=== PATIENT | female | born 1970 | race Caucasian/White ===

== ENCOUNTER → 2016-10-28 | Outpatient (CLI) | payer MEDICARE, MEDICAID ==
[~2016-10-28] MED LIST: ADVIL200 MG PO; AMLOPIDINE; AMOXICILLIN; ANTI-GAS ULTRA180 MG PO; ARICEPT ODT10 MG PO; BEANO; BEANO1 TAB PO; CALCIUM CARBONATE PO; CLARITIN 1010 MG/TAB PO; COLACE 100100 MG/CAP PO; ECONAZOLE NITRATE1% TP; ESTRACE0.5 MG PO; FLORINEF ACETA0.1 MG PO; GAS DISTRESS1 TAB PO; GAS-X; IBUPROFEN400 MG PO; KERASAL TOP; LANOXIN 0.120.125 MG PO; LEVOTHYROXINE0.05 M1 PO; LEVOXYL0.05 MG PO; LORATADINE10 MG PO; LOTRIMIN1% TP; MUCINEX 60600 MG/TA1 PO; MUCINEX 60600 MG/TAB PO; MULTIPLE VITAMI1 CAP PO; MVI; NAMENDA 10MG TA10 MG PO; NEXIUM40 MG PO; OLOPATADINE OP; POVIDONE IODINE; PRADAXA 150MG150 MG PO; PRILOSEC 20MG20 MG PO; PROVERA 2.5MG2.5 MG PO; SYSTANE 0.4%-0.1 SOL OP; SYSTANE 0.4%-0.15 ML OU; THE MEDICINE SH1 POW; VICKS VAPORUB 41 OIN TP; VITAMIN C500 MG PO; VITAMIN D31000 I1 PO; VITAMIN E-400200 IU PO; ZADITOR 5 ML5 ML OP
== END ==
LOC: COL.RAD 12:18
DX: M51.26 Other intervertebral disc displacement, lumbar region (principal); M71.38 Other bursal cyst, other site; M48.06 Spinal stenosis, lumbar region
CPT/HCPCS: A9585

== ENCOUNTER → 2017-03-05 | Outpatient (CLI) | payer MEDICARE, MEDICAID | LOC: MC.RAD 07:57 | DX: Z12.31 Encounter for screening mammogram for malignant neoplasm of breast (principal) ==

== ENCOUNTER 2017-07-09 06:16 | Day surgery (SDC) | payer MEDICARE, MEDICAID ==
[~2017-07-09] VITALS: Ht 134.6 cm; Wt 47.7 kg
[2017-07-09] VITALS (9 sets, daily range): BP systolic 89–114; BP diastolic 54–69; PULSE 69–70
[~2017-07-09 06:16] MED LIST changes: +ANTACID500 M1 PO; -GAS DISTRESS1 TAB PO
[2017-07-09 07:20] LABS: HEMOGLOBIN 13.3 g/dl (12.5-16.0); MEAN CELL VOLUME 99 fl (80.0-100.0); MEAN CORPUSCULAR HEMOGLOBIN 33 pg (27.0-31.0); MEAN CORPUSCULAR HGB CONC 33 g/dl (33.0-37.0); MEAN PLATELET VOLUME 9.6 fl (7.4-10.4); PLATELET COUNT 120 K/mm3 (130-400); RED BLOOD COUNT 4.03 M/mm3 (4.10-5.30); REDCELL DISTRIBUTION WIDTH-CV 13.3 % (11.5-14.5); WHITE BLOOD COUNT 2.7 K/mm3 (4.8-10.8)
[2017-07-09 07:25] LABS: INR 1.3 (0.8-3.0)
[2017-07-09] MEDS ORDERED: FLONASEALLERGY NS (08:05)
[2017-07-09 08:23] LABS: CREATININE, serum 0.83 mg/dL (0.52-1.25); POTASSIUM 3.7 mmol/L (3.4-5.0)
[2017-07-09] MEDS ORDERED: MULTAQ400 MG PO (09:49)
== END 2017-07-09 10:32 | disposition home or self-care (01) ==
LOC: COL.CAR 06:16
PROVIDERS: Internal Medicine Cardiovascular Disease
DX: I48.1 Persistent atrial fibrillation (principal); Q90.9 Down syndrome, unspecified; I34.0 Nonrheumatic mitral (valve) insufficiency; I73.00 Raynaud's syndrome without gangrene; G47.33 Obstructive sleep apnea (adult) (pediatric); E03.9 Hypothyroidism, unspecified; M19.90 Unspecified osteoarthritis, unspecified site; Z95.818 Presence of other cardiac implants and grafts; Z95.1 Presence of aortocoronary bypass graft; Z95.0 Presence of cardiac pacemaker
CPT/HCPCS: G9654; J2250; J2704; J3010

== ENCOUNTER → 2018-04-15 | Outpatient (CLI) | payer MEDICARE, MEDICAID ==
[~2018-04-15] MED LIST changes: +FLONASEALLERGY NS; +MULTAQ400 MG PO
== END ==
LOC: MC.RAD 03-10 08:00
DX: Z12.31 Encounter for screening mammogram for malignant neoplasm of breast (principal)

== ENCOUNTER 2019-03-08 14:54 | Outpatient (RCR) | payer MEDICARE, MEDICAID ==
[~2019-03-08] VITALS: Ht 134.6 cm; Wt 43.3 kg
[2019-03-08 15:30] VITALS: BP 98/52; PULSE 52; TEMP 98.4
[2019-03-08] MEDS ORDERED: ARICEPT10 MG PO (16:47)
[2019-03-08] MEDS ORDERED: IMODIUM 2MG CAPS2 MG PO (16:48)
[2019-03-08] MEDS ORDERED: ASPIRIN E.C. 8181 MG PO (16:49)
== END 2019-03-08 15:30 | disposition home or self-care (01) ==
LOC: EUO 14:54
DX: M85.80 Other specified disorders of bone density and structure, unspecified site (principal)
CPT/HCPCS: J0897

== ENCOUNTER 2019-09-11 15:45 | Outpatient (CLI) | payer MEDICARE, MEDICAID ==
[~2019-09-11] VITALS: Ht 134.6 cm; Wt 46.6 kg
[~2019-09-11 15:45] MED LIST changes: +ARICEPT10 MG PO; +ASPIRIN E.C. 8181 MG PO; +IMODIUM 2MG CAPS2 MG PO
[2019-09-11 16:08] VITALS: BP 89/50; PULSE 70; TEMP 97.5
[2019-09-11] MEDS ORDERED: ZOLOFT 25MG25 MG PO (16:12)
== END 2019-09-11 16:16 | disposition home or self-care (01) ==
LOC: EUO 15:45
DX: M81.0 Age-related osteoporosis without current pathological fracture (principal)
CPT/HCPCS: J0897

== ENCOUNTER 2020-03-13 14:56 | Outpatient (CLI) | payer MEDICARE, MEDICAID ==
[~2020-03-13] VITALS: Ht 134.6 cm; Wt 46.2 kg
[~2020-03-13 14:56] MED LIST changes: +ZOLOFT 25MG25 MG PO
[2020-03-13 15:30] VITALS: BP 112/52; PULSE 62; TEMP 97.9
== END 2020-03-13 15:45 | disposition home or self-care (01) ==
LOC: EUO 14:56
DX: M81.0 Age-related osteoporosis without current pathological fracture (principal)
CPT/HCPCS: J0897

== ENCOUNTER → 2020-03-19 | Outpatient (CLI) | payer MEDICARE, MEDICAID | LOC: MC.RAD 14:45 | DX: Z12.31 Encounter for screening mammogram for malignant neoplasm of breast (principal) ==

== ENCOUNTER 2020-09-05 06:54 | Day surgery (SDC) | payer MEDICARE, MEDICAID ==
[2020-09-05] VITALS (7 sets, daily range): BP systolic 115–147; BP diastolic 67–82; PULSE 70–72; TEMP 98.4
[~2020-09-05] VITALS: Ht 134.7 cm; Wt 45.5 kg
[2020-09-05] MEDS ORDERED: ZOLOFT 100MG100 MG PO (08:18)
[2020-09-05 08:19] LABS: PROTHROMBIN TIME 10.9 SECONDS (9.7-12.8)
[2020-09-05] MEDS ORDERED: TAB-A-VITE TA400 MCG PO (08:19)
[2020-09-05] MEDS ORDERED: beano (08:21)
[2020-09-05 08:22] LABS: CALCIUM 8.4 mg/dL (8.4-10.2); CREATININE, serum 0.92 (0.52-1.25)
[2020-09-05 08:23] LABS: HEMOGLOBIN 11.5 g/dl (12.5-16.0); MEAN CELL VOLUME 96 fl (80.0-100.0); MEAN CORPUSCULAR HEMOGLOBIN 32 pg (27.0-31.0); MEAN CORPUSCULAR HGB CONC 33 g/dl (33.0-37.0); MEAN PLATELET VOLUME 9.7 fl (7.4-10.4); PLATELET COUNT 148 K/mm3 (130-400); RED BLOOD COUNT 3.61 M/mm3 (4.10-5.30); REDCELL DISTRIBUTION WIDTH-CV 14.3 % (11.5-14.5)
[2020-09-05] MEDS ORDERED: ZADITOR 5 ML5 ML OP (08:23)
[2020-09-05] MEDS ORDERED: SYSTANE 0.4%-0.1 SOL OU (08:25)
[2020-09-05 08:27] LABS: HEMATOCRIT 34.7 % (37.0-47.0)
--- NOTE | 2020-09-05 09:20 | NUR ---
SEE MERGE DOCUMENTATION FOR MEDICATION ADMINISTRATION TIMES AND INTRA/POST PROCEDURE SEDATION ASSESSMENTS.
--- NOTE | 2020-09-05 10:15 | NUR ---
PT RETURNED VIA BED FROM HOMOGENIZER OPERATOR. AWAKE TO SURROUNDING. MOM IN ROOM. DRESSING OVER LEFT UPPER CHEST IS CLEAN AND DRY. HAS IV VANCOMYCIN INFUSING FROM HOMOGENIZER OPERATOR. PT TAKES WATER AND MUFFIN.
[2020-09-05] MEDS ORDERED: CLEOCIN HCL300 MG PO (10:20)
--- NOTE | 2020-09-05 10:45 | NUR ---
PT UP TO B/R AFTER BEING INCONTINENT. GAIT STEADY WITH STANDBY ASSIST. NO CHANGES, DR IN ROOM EARLIER, ICE BAG APPLIED TO SITE
--- NOTE | 2020-09-05 11:30 | NUR ---
IV D'CD INTACT. PT DRESSED. REVIEWED DISCHARGE INST. WITH MOM ON CARE OF SITE/DRESSING AND FOLLOWUP APPT MADE FOR WOUND CHECK. ALSO TO VISUAL MERCHANDISE MANAGER NEW RX ANTIBIOTIC FOR 5 DAYS WITH VERBAL UNDERSTANDING. PT DISCHARGED AT 1200 VIA W/C WITH MOM TO CAR
== END 2020-09-05 12:00 | disposition home or self-care (01) ==
LOC: COL.CAR 06:54
PROVIDERS: Internal Medicine Cardiovascular Disease
DX: Z45.010 Encounter for checking and testing of cardiac pacemaker pulse generator [battery] (principal); I49.5 Sick sinus syndrome; Z88.1 Allergy status to other antibiotic agents; Z91.040 Latex allergy status
CPT/HCPCS: J2250; J3010; J3370; J7050

== ENCOUNTER 2020-10-09 12:49 | Outpatient (CLI) | payer MEDICARE, MEDICAID ==
[~2020-10-09] VITALS: Ht 134.6 cm; Wt 48.0 kg
[~2020-10-09 12:49] MED LIST changes: +BENEFIBER PO; +CLEOCIN HCL300 MG PO; +SYSTANE 0.4%-0.1 SOL OU; +TAB-A-VITE TA400 MCG PO; -THE MEDICINE SH1 POW; +ZOLOFT 100MG100 MG PO; +beano
[2020-10-09 13:40] VITALS: BP 96/49; PULSE 70; TEMP 98.3
== END 2020-10-09 14:01 | disposition home or self-care (01) ==
LOC: EUO 12:49
DX: M81.0 Age-related osteoporosis without current pathological fracture (principal)
CPT/HCPCS: J0897

== ENCOUNTER 2021-04-10 14:48 | Outpatient (CLI) | payer MEDICARE, MEDICAID ==
[~2021-04-10] VITALS: Ht 134.6 cm; Wt 45.6 kg
[2021-04-10 15:05] VITALS: BP 110/71; PULSE 80; TEMP 98
[2021-04-10] MEDS ORDERED: GAS-X ULTRA ST180 MG PO (15:09)
--- NOTE | 2021-04-10 15:25 | NUR ---
PT DISCHARGED WITH MOM TO MAIN ENTERENCE.
== END 2021-04-10 16:00 | disposition home or self-care (01) ==
LOC: EUO 14:48
DX: M81.0 Age-related osteoporosis without current pathological fracture (principal)
CPT/HCPCS: J0897

== ENCOUNTER → 2021-05-13 | Outpatient (CLI) | payer MEDICARE, MEDICAID ==
[~2021-05-13] MED LIST changes: +GAS-X ULTRA ST180 MG PO
== END ==
LOC: MC.RAD 05-06 17:00
DX: Z12.31 Encounter for screening mammogram for malignant neoplasm of breast (principal)

== ENCOUNTER 2021-10-13 15:49 | Outpatient (CLI) | payer MEDICARE, MEDICAID ==
[~2021-10-13] VITALS: Ht 134.6 cm; Wt 44.5 kg
[2021-10-13 15:59] VITALS: BP 92/54; PULSE 72; TEMP 97.7
[2021-10-13] MEDS ORDERED: BUSPAR10 MG PO (16:09)
== END 2021-10-13 16:22 | disposition home or self-care (01) ==
LOC: EUO 15:49
DX: M81.0 Age-related osteoporosis without current pathological fracture (principal)
CPT/HCPCS: J0897

== ENCOUNTER 2022-04-17 14:56 | Outpatient (CLI) | payer MEDICARE, MEDICAID ==
[~2022-04-17] VITALS: Ht 134.6 cm; Wt 41.7 kg
[~2022-04-17 14:56] MED LIST changes: +BUSPAR10 MG PO
[2022-04-17 15:21] VITALS: BP 91/53; PULSE 71; TEMP 98.3
== END 2022-04-17 15:54 | disposition home or self-care (01) ==
LOC: EUO 14:56
DX: M81.0 Age-related osteoporosis without current pathological fracture (principal)
CPT/HCPCS: J0897

== ENCOUNTER → 2022-05-14 | Outpatient (CLI) | payer MEDICARE, MEDICAID | LOC: MC.RAD 14:00 | DX: Z12.31 Encounter for screening mammogram for malignant neoplasm of breast (principal) ==

== ENCOUNTER 2022-10-21 15:41 | Outpatient (CLI) | payer MEDICARE, MEDICAID ==
[2022-10-21 16:29] VITALS: BP 96/62; PULSE 71; TEMP 98.4
== END 2022-10-21 16:40 ==
LOC: EUO 15:41
DX: M81.0 Age-related osteoporosis without current pathological fracture (principal)
CPT/HCPCS: J0897

== ENCOUNTER 2023-11-10 09:28 | Outpatient (CLI) | payer MEDICARE, MEDICAID ==
[~2023-11-10] VITALS: Ht 134.6 cm; Wt 39.8 kg
[2023-11-10] MEDS ORDERED: Denosumab 60 MG/ML SYRINGE SQ ONE (09:45)
[2023-11-10 09:58] VITALS: BP 124/61; PULSE 70; TEMP 97.8
== END 2023-11-10 10:24 ==
LOC: EUO 09:28
DX: M81.0 Age-related osteoporosis without current pathological fracture (principal)
CPT/HCPCS: J0897